=== PATIENT | male | born 1945 | race Caucasian/White ===

== ENCOUNTER → 2019-07-20 | Outpatient (REF) | payer MEDICARE, OTHER ==
[~2019-07-20] MED LIST: ALLO100T PO; ALOE PO; ASPI81TA85 PO; CALCTAB28 PO; CORE25TA PO; DAPS25TA2 PO; DIOV320T PO; FISHOIL PO; FLOM0.4C39 PO; GLUC2.5T2 PO; GLUC250C5 PO; HUMALOG; HYDR-3677 PO; LANTUS INSULIN SQ; LASI80TA PO; LATA0.002 OU; LIPI20TA PO; METO-1 PO; MICR8CAP PO; MUCI600T34 PO; MULTTAB4 PO; NORV2TAB PO; NOVO70VL SC; NYAM10003 TOP; ONGL5TAB PO; PRED10TA2 PO; PROP80TA PO; PROT1TAB2 PO; TORS10TA22 PO; VITA200T4 PO; VITAMIN D PO; [UNRECOGNIZED DRUG - CODE] PO; [UNRECOGNIZED DRUG - CODE] PO
[2019-07-20 19:08] LABS: CREATININE, URINE 96.2 MG/DL; MALB URINE SIEMENS 20.9 MG/L; MAU/CREAT RATIO 21.7 MCG/MG (0.0-30.0)
== END ==
LOC: M LAB REF 16:35
PROVIDERS: ATTEND Internal Medicine Endocrinology, Diabetes & Metabolism
DX: E11.22 Type 2 diabetes mellitus with diabetic chronic kidney disease (principal)

== ENCOUNTER → 2020-04-17 | Outpatient (CLI) | payer MEDICARE, OTHER ==
[2020-04-17 13:49] LABS: CHOLESTEROL RISK RATIO 3.871 (<5)
== END ==
LOC: M WUC 09:06
PROVIDERS: ATTEND Nurse Practitioner Family
DX: E78.2 Mixed hyperlipidemia (principal)

== ENCOUNTER → 2020-10-31 | Outpatient (REF) | payer MEDICARE, OTHER ==
[2020-11-01 23:07] LABS: PSA TOTAL 2.2 ng/mL (0.0-4.0)
== END ==
LOC: M LAB REF 12:56
PROVIDERS: ATTEND Nurse Practitioner Family
DX: N40.1 Benign prostatic hyperplasia with lower urinary tract symptoms (principal)

== ENCOUNTER → 2020-11-13 | Outpatient (CLI) | payer MEDICARE, OTHER ==
--- NOTE | 2020-11-14 09:23 | REP ---
INDICATION: CKD 4, RETENTION OF URINE COMPARISON: None TECHNIQUE: Real time B-mode ultrasound examination using curved array transducer. FINDINGS: Bladder is normal in appearance without wall thickening or mass lesion. Bilateral ureteral jets are identified. Prostate gland measures 5.4 x 5.0 x 4.5 cm. Prevoid bladder measures 13.7 x 9.2 x 7.3 cm (600 cc). Postvoid bladder measures 9.4 x 6.4 x 4.9 cm (193 cc). Postvoid residual: 32% IMPRESSION: 1. Normal appearance of the bladder but elevated postvoid residual volume requires further investigation. <Electronically signed by Colton Cid > 11/14/20 [id number]
--- NOTE | 2020-11-14 09:29 | REP ---
INDICATION: CKD 4, RETENTION OF URINE COMPARISON: 01/18/2016 TECHNIQUE: Real time best scale ultrasound examination using curved array transducer. FINDINGS: Kidneys are normal in reniform shape and demonstrate increased central sinus fat, cortical thinning, increased parenchymal echotexture and renovascular calcifications consistent with chronic medical renal disease. No hydronephrosis, nephrolithiasis or renal mass lesion. Right kidney measures 12.4 x 6.4 x 5.9 cm. Left kidney measures 13.6 x 5.9 x 5.9 cm and includes 1.3 x 1.0 x 1.1 cm lower pole cyst. Incidental gallstones noted. IMPRESSION: Chronic medical renal disease. Incidental gallstones noted. <Electronically signed by Colton Cid > 11/14/20 [id number]
== END ==
LOC: M RAD 15:52
PROVIDERS: ATTEND Nurse Practitioner Family
DX: N18.4 Chronic kidney disease, stage 4 (severe) (principal); R33.9 Retention of urine, unspecified

== ENCOUNTER → 2021-06-19 | Outpatient (CLI) | payer MEDICARE, OTHER ==
[2021-06-19 13:26] LABS: CHOLESTEROL RISK RATIO 3.358 (<5)
== END ==
LOC: M WUC 09:07
PROVIDERS: ATTEND Nurse Practitioner Family
DX: E78.2 Mixed hyperlipidemia (principal)

== ENCOUNTER → 2021-09-04 | Outpatient (CLI) | payer MEDICARE, OTHER ==
[~2021-09-04] MED LIST changes: +E-Z-GAS II EFFERVESCENT PACKET (SODIUM BICARB./CITRIC ACID/SIMETHICONE) As Ordered ONE; +E-Z-HD 98% w/w 340GM SUSP BTL As Ordered ONE; +E-Z-PAQUE 96% w/w SUSP 176GM BTL As Ordered ONE
[2021-09-04 10:56] LABS: HEMATOCRIT 46.3 % (42.0-52.0); HEMOGLOBIN 15.3 g/dl (13.5-17.5); MEAN CORPUSCULAR HEMOGLOBIN 31.9 pg (27.0-33.0); MEAN CORPUSCULAR VOLUME 96.5 fl (80.0-96.0); PLATELET COUNT, AUTOMATED 230 10^3/uL (150-450); WHITE BLOOD COUNT 7.2 10^3/uL (4.0-10.0)
[2021-09-04 11:37] LABS: ALBUMIN 3.5 GM/DL (3.2-5.2); BILIRUBIN,TOTAL 0.6 MG/DL (0.2-1.0); CALCIUM LEVEL 9.8 MG/DL (8.8-10.2); CREATININE FOR GFR 2.87 MG/DL (0.70-1.30); TOTAL PROTEIN 6.6 GM/DL (6.4-8.2)
[2021-09-04 11:38] LABS: PROSTATIC SPECIFIC AG MONITOR 3.23 NG/ML (< 4.00); THYROID STIMULATING HORMONE 2.98 uIU/ML (0.358-3.740)
[2021-09-04 13:18] LABS: HEMOGLOBIN A1c 7.4 %
== END ==
LOC: M RAD 08:48
PROVIDERS: ATTEND Family Medicine
DX: K31.7 Polyp of stomach and duodenum (principal); R19.01 Right upper quadrant abdominal swelling, mass and lump; K80.20 Calculus of gallbladder without cholecystitis without obstruction; R47.02 Dysphasia; R10.13 Epigastric pain

== ENCOUNTER → 2021-09-26 | Outpatient (REF) | payer MEDICARE, OTHER ==
[~2021-09-26] MED LIST changes: -E-Z-GAS II EFFERVESCENT PACKET (SODIUM BICARB./CITRIC ACID/SIMETHICONE) As Ordered ONE; -E-Z-HD 98% w/w 340GM SUSP BTL As Ordered ONE; -E-Z-PAQUE 96% w/w SUSP 176GM BTL As Ordered ONE
[2021-09-26 19:44] LABS: ALBUMIN 3.5 GM/DL (3.2-5.2); CALCIUM LEVEL 9.1 MG/DL (8.8-10.2); CREATININE FOR GFR 2.47 MG/DL (0.70-1.30); GLOMERULAR FILTRATION RATE 27.3 (>42); PHOSPHORUS LEVEL 3.8 MG/DL (2.5-4.9); URIC ACID 5.1 MG/DL (3.5-7.2)
== END ==
LOC: M LAB REF 16:58
PROVIDERS: ATTEND Nurse Practitioner Family
DX: N18.4 Chronic kidney disease, stage 4 (severe) (principal); M10.9 Gout, unspecified

== ENCOUNTER → 2021-11-28 | Outpatient (CLI) | payer MEDICARE, OTHER ==
[2021-11-28 09:56] LABS: HEMATOCRIT 44.8 % (42.0-52.0); HEMOGLOBIN 14.8 g/dl (13.5-17.5); MEAN CORPUSCULAR HEMOGLOBIN 32.9 pg (27.0-33.0); MEAN CORPUSCULAR VOLUME 99.6 fl (80.0-96.0); PLATELET COUNT, AUTOMATED 217 10^3/uL (150-450); WHITE BLOOD COUNT 8.8 10^3/uL (4.0-10.0)
[2021-11-28 10:10] LABS: INR 0.94
[2021-11-28 10:35] LABS: ALBUMIN 3.4 GM/DL (3.2-5.2); BILIRUBIN,TOTAL 0.5 MG/DL (0.2-1.0); CALCIUM LEVEL 9.2 MG/DL (8.8-10.2); CHOLESTEROL RISK RATIO 3.024 (<5); CREATININE FOR GFR 2.48 MG/DL (0.70-1.30); GLOMERULAR FILTRATION RATE 27.2 (>42); POTASSIUM SERUM 4.1 MEQ/L (3.5-5.1); THYROID STIMULATING HORMONE 2.7 uIU/ML (0.358-3.740); TOTAL PROTEIN 6.5 GM/DL (6.4-8.2)
== END ==
LOC: M RAD 08:40
PROVIDERS: ATTEND Family Medicine
DX: Z01.818 Encounter for other preprocedural examination (principal); I10 Essential (primary) hypertension
CPT/HCPCS: 36415; 71046; 80053; 80061; 84443; 85027; 85610; 93005; G0103

== ENCOUNTER → 2021-12-13 | Outpatient (CLI) | payer MEDICARE, OTHER ==
[~2021-12-13] MED LIST changes: +ALLO300T2 PO; +AMLO1TAB24 PO; +ATOR40TA75 PO; +CALC1CAP31 PO; +CARV25TA PO; +ECOT81TA5 PO; +EZET10TA21 PO; +FURO80TA2 PO; +GLIP10TA18 PO; +HYDR10TAB PO; +NOVOINJ3 SC; +PANT40TA29 PO; +SITA50TAB PO; +SPIR-10 PO; +TAMS1CAP17 PO; +TIMO0.5S29 OU; +TRES1INJ SC
== END ==
LOC: M LABSMTC 09:08
PROVIDERS: ATTEND Anesthesiology
DX: Z01.812 Encounter for preprocedural laboratory examination (principal); Z20.822 Contact with and (suspected) exposure to COVID-19

== ENCOUNTER 2021-12-18 06:01 | Day surgery (SDC) | payer MEDICARE, OTHER ==
[~2021-12-18] VITALS: Ht 177.8 cm; Wt 103.3 kg
[~2021-12-18 06:01] MED LIST changes: +ceFAZolin SOD 2 GM in IV 1 EA IV ONE
[2021-12-18] MEDS ORDERED: LR 1,000 ML IV SCH ×2 (06:25→09:00)
[2021-12-18] MEDS ORDERED: INSULIN LISPRO (NovoLOG) PER UNIT SC PRN ×2 (06:25→09:00)
[2021-12-18] MEDS ORDERED: latanoprost OU (06:43)
[2021-12-18] MEDS ORDERED: BUPIVACAINE/EPIN 0.25% 30 ML VIAL As Ordered ONE (07:21)
[2021-12-18] MEDS ORDERED: GLUCAGON INJ 1MG VIAL As Ordered ONE (07:21)
[2021-12-18] MEDS ORDERED: MIDAZOLAM INJ 2MG/2ML VIAL (J2250 PER 1MG) As Ordered ONE (07:56)
[2021-12-18] MEDS ORDERED: METOCLOPRAMIDE INJ 10MG/2ML VIAL (J2765 PER 1) As Ordered ONE (07:56)
[2021-12-18] MEDS ORDERED: ACETAMINOPHEN 1000MG 100ML IV BTL (OFIRMEV) (J0131 PER 10MG) As Ordered ONE (07:56)
[2021-12-18] MEDS ORDERED: propofoL 200 MG/20 ML VIAL As Ordered ONE (07:56)
[2021-12-18] MEDS ORDERED: LIDOCAINE 2% 100MG/5ML SDV (FOR ANES.) As Ordered ONE (07:56)
[2021-12-18] MEDS ORDERED: ROCURONIUM BROMIDE 50 MG/5 ML VIAL As Ordered ONE (07:56)
[2021-12-18] MEDS ORDERED: fentaNYL 250 MCG/5 ML INJECTION As Ordered ONE (07:56)
[2021-12-18] MEDS ORDERED: ONDANSETRON 4MG 2ML VIAL As Ordered ONE (07:56)
[2021-12-18] MEDS ORDERED: DESFLURANE 240 ML INHALANT As Ordered ONE (07:56)
[2021-12-18] MEDS ORDERED: dexameTHASONE 4 MG/ML 1ML VIAL (J1100 PER 1MG) As Ordered ONE (07:56)
[2021-12-18] MEDS ORDERED: SUGAMMADEX SODIUM 500 MG/5 ML VIAL (BRIDION) As Ordered ONE (07:56)
[2021-12-18] MEDS ORDERED: ePHEDrine SULFATE 25 MG/5 ML(5MG/ML) SYRINGE As Ordered ONE (08:05)
[2021-12-18] MEDS ORDERED: PHENYLephrine 500MCG 5ML (100MCG/ML) SYRINGE As Ordered ONE (08:05)
[2021-12-18] MEDS ORDERED: ONDANSETRON 4MG 2ML VIAL IV PRN (09:00)
[2021-12-18] MEDS ORDERED: oxyCODONE 5MG TAB PO PRN (09:00)
[2021-12-18] MEDS ORDERED: fentaNYL 100 MCG/2 ML INJECTION IV PRN (09:00)
[2021-12-18] MEDS ORDERED: HYDROMORPHONE HCL 0.5 MG/ 0.5 ML SYRINGE (J1170 PER 1) IV PRN (09:00)
[2021-12-18] MEDS ORDERED: NS 1,000 ML IV SCH (09:20)
[2021-12-18] MEDS ORDERED: traMADol 50 MG TAB PO PRN (09:25)
[2021-12-18 11:00] VITALS: BP 152/88
== END 2021-12-18 11:12 | disposition home or self-care (01) ==
LOC: M SDC 06:01
PROVIDERS: ATTEND Surgery
DX: K80.10 Calculus of gallbladder with chronic cholecystitis without obstruction (principal); I12.9 Hypertensive chronic kidney disease with stage 1 through stage 4 chronic kidney disease, or unspecified chronic kidney disease; N18.4 Chronic kidney disease, stage 4 (severe); E78.5 Hyperlipidemia, unspecified; K21.9 Gastro-esophageal reflux disease without esophagitis; G47.33 Obstructive sleep apnea (adult) (pediatric); E11.9 Type 2 diabetes mellitus without complications; Z79.84 Long term (current) use of oral hypoglycemic drugs; Z88.5 Allergy status to narcotic agent; Z79.899 Other long term (current) drug therapy
CPT/HCPCS: 47562; 88304; J0131; J0690; J1100; J2250; J2370; J2405; J2765; J3010

== ENCOUNTER 2022-04-05 11:52 | Emergency (ER) | payer MEDICARE, OTHER ==
[~2022-04-05] VITALS: Ht 177.8 cm; Wt 108.6 kg
[~2022-04-05 11:52] MED LIST changes: -ceFAZolin SOD 2 GM in IV 1 EA IV ONE; +latanoprost OU
[2022-04-05 12:03] VITALS: BP 148/52
[2022-04-05] MEDS ORDERED: HYDR-3713 PO (13:21)
== END 2022-04-05 13:36 | disposition home or self-care (01) ==
LOC: EDBD 11:52 → M ED 11:52
DX: S42.351A Displaced comminuted fracture of shaft of humerus, right arm, initial encounter for closed fracture (principal); S00.81XA Abrasion of other part of head, initial encounter; W00.0XXA Fall on same level due to ice and snow, initial encounter; I10 Essential (primary) hypertension; J44.9 Chronic obstructive pulmonary disease, unspecified; E11.9 Type 2 diabetes mellitus without complications; Z88.6 Allergy status to analgesic agent; Z79.899 Other long term (current) drug therapy; Z79.82 Long term (current) use of aspirin; Z79.4 Long term (current) use of insulin; Y92.009 Unspecified place in unspecified non-institutional (private) residence as the place of occurrence of the external cause; Y93.9 Activity, unspecified; Y99.9 Unspecified external cause status

== ENCOUNTER 2022-04-30 14:08 | Inpatient (IN) | payer MEDICARE, OTHER ==
[~2022-04-30] VITALS: Ht 177.8 cm; Wt 106.6 kg
[~2022-04-30 14:08] MED LIST changes: +HYDR-3713 PO
[2022-04-30] MEDS ORDERED: GLUCOSE 4GM CHEW TABLET PO PRN (14:30)
[2022-04-30] MEDS ORDERED: GLUCAGON INJ 1MG VIAL SC PRN (14:30)
[2022-04-30 15:15] VITALS: BP 166/90
[2022-04-30 15:31] LABS: HEMOGLOBIN 14.8 g/dl (13.5-17.5); MEAN CORPUSCULAR HEMOGLOBIN 32.2 pg (27.0-33.0); MEAN CORPUSCULAR HGB CONC 32.9 g/dl (32.0-36.5); MEAN CORPUSCULAR VOLUME 97.8 fl (80.0-96.0); PLATELET COUNT, AUTOMATED 282 10^3/uL (150-450); WHITE BLOOD COUNT 8.7 10^3/uL (4.0-10.0)
[2022-04-30 15:57] LABS: ALBUMIN 3.4 G/DL (3.2-5.2); BILIRUBIN,TOTAL 0.6 MG/DL (0.3-1.2); CALCIUM LEVEL 9.1 MG/DL (8.3-10.6); CREATININE FOR GFR 2.2 MG/DL (0.70-1.30); GLOMERULAR FILTRATION RATE 31.2 (>42); POTASSIUM SERUM 3.9 MMOL/L (3.5-5.1); TOTAL PROTEIN 6.6 G/DL (5.7-8.2)
[2022-04-30 16:07] LABS: PROTHROMBIN TIME 13.4 SECONDS (12.5-14.5)
[2022-04-30 16:08] LABS: PARTIAL THROMBOPLASTIN TIME 26.4 SECONDS (24.8-34.2)
[2022-04-30] MEDS ORDERED: traMADol 50 MG TAB PO PRN (16:55)
[2022-04-30] MEDS ORDERED: MORPHINE 2 MG/ML 1ML VIAL IV PRN (16:55)
[2022-04-30] MEDS ORDERED: **NOTE PATIENT COMMENT** MISC XX SCH (16:55)
[2022-04-30] MEDS ORDERED: INSULIN LISPRO (NovoLOG) PER UNIT SC SCH ×2 (17:30→21:00)
[2022-04-30] MEDS ORDERED: **hydrALAZINE** 10 MG TAB PO SCH (21:00)
[2022-04-30] MEDS ORDERED: SPIRONOLACTONE 25 MG TAB PO SCH (21:00)
[2022-04-30 21:05] VITALS: BP 150/85
[2022-04-30] MEDS ORDERED: KRIL1000 PO (21:17)
[2022-04-30] MEDS ORDERED: OXYC-517 PO (21:17)
[2022-04-30] MEDS ORDERED: ACET-897 PO (21:17)
[2022-04-30] MEDS ORDERED: XALA0.007 OU (21:17)
[2022-04-30] MEDS ORDERED: VITA400C53 PO (21:19)
[2022-04-30] MEDS ORDERED: THERTAB52 PO (21:19)
[2022-04-30] MEDS ORDERED: HOME MED LIST COMPLETE! XX SCH (21:20)
[2022-04-30] MEDS: TAMSULOSIN 0.4 MG CAP PO SCH (21:39)
[2022-04-30] MEDS: ATORVASTATIN 20 MG TAB PO SCH (21:40)
[2022-04-30] MEDS: PANTOPRAZOLE 40MG TAB (PROTONIX) PO SCH (21:40)
[2022-04-30] MEDS ORDERED: oxyCODONE 5MG TAB PO PRN (21:50)
[2022-04-30] MEDS: ACETAMINOPHEN 500 MG TAB PO PRN (21:57)
[2022-04-30] MEDS: LATANOPROST 0.005% OPHTH SOLN 2.5 ML OU SCH (22:02)
[2022-04-30] MEDS: CARVedilol 12.5 MG TAB PO SCH (22:35)
[2022-05-01] VITALS (9 sets, daily range): BP systolic 122–142; BP diastolic 77–93
[2022-05-01] MEDS: DEXTROSE 50% 50ML SYRINGE IV PRN ×2 (05:52→11:53)
[2022-05-01] MEDS: INSULIN LISPRO (NovoLOG) PER UNIT SC SCH ×3 (06:00→18:58)
[2022-05-01 06:18] LABS: HEMATOCRIT 40.5 % (42.0-52.0); HEMOGLOBIN 13.3 g/dl (13.5-17.5); MEAN CORPUSCULAR HGB CONC 32.8 g/dl (32.0-36.5); MEAN CORPUSCULAR VOLUME 97.6 fl (80.0-96.0); PLATELET COUNT, AUTOMATED 247 10^3/uL (150-450); RED BLOOD COUNT 4.15 10^6/uL (4.30-6.10); WHITE BLOOD COUNT 7.9 10^3/uL (4.0-10.0)
[2022-05-01 06:49] LABS: CALCIUM LEVEL 8.7 MG/DL (8.3-10.6); CREATININE FOR GFR 2.2 MG/DL (0.70-1.30); GLOMERULAR FILTRATION RATE 31.2 (>42)
[2022-05-01] MEDS ORDERED: FUROSEMIDE 80 MG TAB PO SCH (08:00)
[2022-05-01] MEDS: TIMOLOL MALEATE 0.5% OPHTH SOLN 5 ML OU SCH (08:59)
[2022-05-01] MEDS: CARVedilol 12.5 MG TAB PO SCH ×2 (09:00→21:08)
[2022-05-01] MEDS: PANTOPRAZOLE 40MG TAB (PROTONIX) PO SCH ×2 (09:00→21:09)
[2022-05-01] MEDS: allopurinoL 300 MG TAB PO SCH (09:00)
[2022-05-01] MEDS ORDERED: ROPIvacaine 0.5% 30ML VIAL PN ONE (10:10)
[2022-05-01] MEDS ORDERED: MIDAZOLAM INJ 2MG/2ML VIAL IV PRN (10:10)
[2022-05-01] MEDS ORDERED: fentaNYL 100 MCG/2 ML INJECTION IV PRN ×2 (10:10→15:50)
[2022-05-01] MEDS ORDERED: LIDOCAINE 1% SDV 5ML VIAL PN ONE (10:10)
[2022-05-01] MEDS ORDERED: ROCURONIUM BROMIDE 50MG/5ML VIAL As Ordered ONE ×2 (11:36→13:00)
[2022-05-01] MEDS ORDERED: fentaNYL 100 MCG/2 ML INJECTION As Ordered ONE (11:36)
[2022-05-01] MEDS ORDERED: LIDOCAINE 2% 100MG/5ML SDV (FOR ANES.) As Ordered ONE (11:36)
[2022-05-01] MEDS ORDERED: propofoL 200 MG/20 ML VIAL As Ordered ONE ×2 (11:36→15:05)
[2022-05-01] MEDS ORDERED: TRANEXAMIC ACID 100 MG/ML 10ML VIAL As Ordered ONE ×2 (11:39→12:23)
[2022-05-01] MEDS ORDERED: LIDOCAINE W/EPINEPHRINE 1% 20ML VIAL As Ordered ONE ×2 (11:39→12:14)
[2022-05-01] MEDS ORDERED: VANCOMYCIN 1000MG/20ML VIAL As Ordered ONE (11:39)
[2022-05-01] MEDS ORDERED: EZETIMIBE 10MG TABLET (ZETIA) PO SCH (12:00)
[2022-05-01] MEDS ORDERED: ceFAZolin 2 GM/D5W 50 ML IV BAG As Ordered ONE (12:14)
[2022-05-01] MEDS ORDERED: PHENYLephrine 500MCG 5ML (100MCG/ML) SYRINGE As Ordered ONE ×2 (12:16→12:21)
[2022-05-01] MEDS ORDERED: ePHEDrine SULFATE 25 MG/5 ML(5MG/ML) SYRINGE As Ordered ONE (12:21)
[2022-05-01] MEDS ORDERED: DESFLURANE 240 ML INHALANT As Ordered ONE (12:48)
[2022-05-01] MEDS ORDERED: PHENYLEPHRINE 10MG/ML 1ML VIAL As Ordered ONE (12:52)
[2022-05-01] MEDS ORDERED: ACETAMINOPHEN 1000MG 100ML IV BAG As Ordered ONE (13:44)
[2022-05-01] MEDS ORDERED: ONDANSETRON 4MG 2ML VIAL As Ordered ONE (13:48)
[2022-05-01] MEDS ORDERED: HYDROMORPHONE HCL 0.5 MG/ 0.5 ML SYRINGE IV PRN (15:30)
[2022-05-01] MEDS ORDERED: PERCOCET 5MG/325MG TAB PO PRN (15:30)
[2022-05-01] MEDS ORDERED: ONDANSETRON 4MG 2ML VIAL IV PRN (15:30)
[2022-05-01] MEDS ORDERED: LR 1,000 ML IV SCH ×2 (15:30→15:50)
[2022-05-01] MEDS ORDERED: METOCLOPRAMIDE INJ 10MG/2ML VIAL IV ONE (15:45)
[2022-05-01] MEDS ORDERED: METOCLOPRAMIDE INJ 10MG/2ML VIAL IV PRN (15:50)
[2022-05-01] MEDS ORDERED: GLUCAGON INJ 1MG VIAL SC PRN (16:45)
[2022-05-01] MEDS ORDERED: GLUCOSE 4GM CHEW TABLET PO PRN (16:45)
[2022-05-01] MEDS ORDERED: DEXTROSE 50% 50ML SYRINGE IV PRN (16:45)
[2022-05-01] MEDS ORDERED: INSULIN LISPRO (NovoLOG) PER UNIT SC SCH (21:00)
[2022-05-01] MEDS: LATANOPROST 0.005% OPHTH SOLN 2.5 ML OU SCH (21:09)
[2022-05-01] MEDS: ceFAZolin SOD 1 GM in D5W MINI-BAG PLUS 50 ML IV SCH (21:09)
[2022-05-01] MEDS: ATORVASTATIN 20 MG TAB PO SCH (21:09)
[2022-05-01] MEDS: TAMSULOSIN 0.4 MG CAP PO SCH (21:09)
[2022-05-02 02:00] VITALS: BP 135/90
[2022-05-02] MEDS: ceFAZolin SOD 1 GM in D5W MINI-BAG PLUS 50 ML IV SCH ×2 (04:41→12:33)
[2022-05-02 06:00] VITALS: BP 134/88
[2022-05-02] MEDS: ACETAMINOPHEN 500 MG TAB PO PRN (06:38)
[2022-05-02 06:53] LABS: HEMATOCRIT 38.5 % (42.0-52.0); HEMOGLOBIN 12.6 g/dl (13.5-17.5); MEAN CORPUSCULAR HGB CONC 32.7 g/dl (32.0-36.5); MEAN CORPUSCULAR VOLUME 97.7 fl (80.0-96.0); PLATELET COUNT, AUTOMATED 239 10^3/uL (150-450); RED BLOOD COUNT 3.94 10^6/uL (4.30-6.10); WHITE BLOOD COUNT 14.3 10^3/uL (4.0-10.0)
[2022-05-02] MEDS ORDERED: ACETAMINOPHEN 500 MG TAB PO PRN (07:15)
[2022-05-02 07:19] LABS: CALCIUM LEVEL 8.5 MG/DL (8.3-10.6); CREATININE FOR GFR 2.38 MG/DL (0.70-1.30); GLOMERULAR FILTRATION RATE 28.5 (>42); POTASSIUM SERUM 4.4 MMOL/L (3.5-5.1)
[2022-05-02] MEDS: INSULIN LISPRO (NovoLOG) PER UNIT SC SCH ×2 (07:53→12:49)
[2022-05-02 08:00] VITALS: BP 131/86
[2022-05-02 08:36] VITALS: BP 130/80
[2022-05-02] MEDS: CARVedilol 12.5 MG TAB PO SCH (08:36)
[2022-05-02] MEDS: PANTOPRAZOLE 40MG TAB (PROTONIX) PO SCH (08:38)
[2022-05-02] MEDS: allopurinoL 300 MG TAB PO SCH (08:38)
[2022-05-02] MEDS: TIMOLOL MALEATE 0.5% OPHTH SOLN 5 ML OU SCH (08:39)
[2022-05-02] MEDS ORDERED: amLODIPine 5 MG TAB PO SCH (09:00)
[2022-05-02] MEDS ORDERED: TRAM50TA2 PO (10:19)
[2022-05-02] MEDS ORDERED: ACET-683 PO (10:19)
[2022-05-02] MEDS ORDERED: ASPI-1 PO (10:23)
[2022-05-02] MEDS ORDERED: EZETIMIBE 10MG TABLET (ZETIA) PO SCH (12:00)
[2022-05-03] MEDS ORDERED: CALCITRIOL 0.25 MCG CAP (S0169) PO SCH (12:00)
== END 2022-05-02 16:10 | disposition home health service (06) | DRG 483 ==
LOC: M MS5PR 14:56
PROVIDERS: ADMIT Family Medicine; ATTEND Student in an Organized Health Care Education/Training Program
PROC: 0RRJ00Z Replacement of Right Shoulder Joint with Reverse Ball and Socket Synthetic Substitute, Open Approach (ICD-10-PCS; principal; 2022-05-01 10:00)
DX: S42.291A Other displaced fracture of upper end of right humerus, initial encounter for closed fracture (principal); E11.51 Type 2 diabetes mellitus with diabetic peripheral angiopathy without gangrene; E11.22 Type 2 diabetes mellitus with diabetic chronic kidney disease; N18.32 Chronic kidney disease, stage 3b; E78.5 Hyperlipidemia, unspecified; I13.10 Hypertensive heart and chronic kidney disease without heart failure, with stage 1 through stage 4 chronic kidney disease, or unspecified chronic kidney disease; N40.0 Benign prostatic hyperplasia without lower urinary tract symptoms; M10.9 Gout, unspecified; D64.9 Anemia, unspecified; G47.33 Obstructive sleep apnea (adult) (pediatric); E55.9 Vitamin D deficiency, unspecified; Z79.899 Other long term (current) drug therapy; Z79.82 Long term (current) use of aspirin; Z88.5 Allergy status to narcotic agent; Z79.4 Long term (current) use of insulin; W18.30XA Fall on same level, unspecified, initial encounter; Y92.009 Unspecified place in unspecified non-institutional (private) residence as the place of occurrence of the external cause

== ENCOUNTER → 2022-05-10 | Outpatient (CLI) | payer MEDICARE, OTHER ==
[~2022-05-10] MED LIST changes: +ACET-683 PO; +ACET-897 PO; +ASPI-1 PO; +KRIL1000 PO; +OXYC-517 PO; +THERTAB52 PO; +TRAM50TA2 PO; +VITA400C53 PO; +XALA0.007 OU
== END ==
LOC: M SOG 08:14
PROVIDERS: ATTEND Physician Assistant
DX: S42.201D Unspecified fracture of upper end of right humerus, subsequent encounter for fracture with routine healing (principal); Z96.611 Presence of right artificial shoulder joint

== ENCOUNTER → 2022-06-21 | Outpatient (CLI) | payer MEDICARE, OTHER ==
[~2022-06-21] MED LIST changes: +TIMO0.5S20 OU; -TIMO0.5S29 OU
== END ==
LOC: M SOG 08:14
PROVIDERS: ATTEND Physician Assistant
DX: Z96.611 Presence of right artificial shoulder joint (principal)

== ENCOUNTER → 2022-06-24 | Outpatient (CLI) | payer MEDICARE, OTHER ==
[2022-06-24 10:40] LABS: CHOLESTEROL RISK RATIO 3.1 (<5); HDL CHOLESTEROL 40.2 MG/DL (>40); LDL CHOLESTEROL 57.2 MG/DL (<100); NON-HDL-C 84.8 MG/DL
== END ==
LOC: M WUC 08:28
PROVIDERS: ATTEND Nurse Practitioner Family
DX: E78.2 Mixed hyperlipidemia (principal)

== ENCOUNTER 2022-06-29 13:32 | Inpatient (IN) | payer MEDICARE, OTHER ==
[~2022-06-29] VITALS: Ht 177.8 cm; Wt 101.8 kg
[2022-06-29 14:35] LABS: BASO # 0.1 10^3/uL (0.0-0.2); BASO % 0.4 % (0.0-1.0); EOS # 0.1 10^3/uL (0.0-0.5); EOS % 0.8 % (0.0-3.0); HEMATOCRIT 41.3 % (42.0-52.0); HEMOGLOBIN 13.6 g/dl (13.5-17.5); LYMPH # 1.2 10^3/uL (1.5-5.0); LYMPH % 9.6 % (24.0-44.0); MEAN CORPUSCULAR HEMOGLOBIN 30.7 pg (27.0-33.0); MEAN CORPUSCULAR HGB CONC 32.9 g/dl (32.0-36.5); MEAN CORPUSCULAR VOLUME 93.2 fl (80.0-96.0); MONO # 1.2 10^3/uL (0.0-0.8); MONO % 9.2 % (2.0-8.0); NEUTROPHILS # 10.1 10^3/uL (1.5-8.5); NEUTROPHILS % 79.3 % (36.0-66.0); PLATELET COUNT, AUTOMATED 245 10^3/uL (150-450); RED BLOOD COUNT 4.43 10^6/uL (4.30-6.10); WHITE BLOOD COUNT 12.8 10^3/uL (4.0-10.0)
[2022-06-29 14:57] LABS: CALCIUM LEVEL 9.7 MG/DL (8.3-10.6); CK-MB VALUE MASS 1.6 NG/ML (<3.6); CREATININE FOR GFR 1.9 MG/DL (0.70-1.30); GLOMERULAR FILTRATION RATE 36.9 (>42); MAGNESIUM LEVEL 2.1 MG/DL (1.8-2.4); POTASSIUM SERUM 3.9 MMOL/L (3.5-5.1)
[2022-06-29 15:00] LABS: THYROID STIMULATING HORMONE 1.722 uIU/ML (0.55-4.78)
[2022-06-29 15:01] LABS: MB/CK RELATIVE INDEX 1.03 (< OR =4); RSV AMPLIFICATION NEGATIVE (NEGATIVE)
[2022-06-29] MEDS ORDERED: METOPROLOL TART 25 MG TABLET PO ONE (15:05)
[2022-06-29] MEDS ORDERED: ECOT81TA5 PO (15:08)
[2022-06-29] MEDS: METOPROLOL 5 MG/5 ML VIAL IV SCH ×3 (15:14→15:29)
[2022-06-29] MEDS ORDERED: APIXABAN 5 MG TAB (ELIQUIS) PO ONE (15:45)
[2022-06-29] MEDS ORDERED: DIGOXIN INJ 0.5 MG/2 ML AMP IV ONE (15:45)
[2022-06-29 16:40] LABS: INR 0.96
[2022-06-29] MEDS ORDERED: HOME MED LIST COMPLETE! XX SCH (18:35)
[2022-06-29 19:31] LABS: FREE T4 1.03 NG/DL (0.89-1.76)
[2022-06-29 20:08] VITALS: BP 160/81
[2022-06-29] MEDS: SPIRONOLACTONE 25 MG TAB PO SCH (22:14)
[2022-06-29] MEDS: TAMSULOSIN 0.4 MG CAP PO SCH (22:14)
[2022-06-29] MEDS: ATORVASTATIN 20 MG TAB PO SCH (22:14)
[2022-06-29] MEDS: **hydrALAZINE** 10 MG TAB PO SCH (22:14)
[2022-06-29] MEDS: CARVedilol 12.5 MG TAB PO SCH (22:15)
[2022-06-29] MEDS: PANTOPRAZOLE 40MG TAB (PROTONIX) PO SCH (22:15)
[2022-06-29] MEDS: LATANOPROST 0.005% OPHTH SOLN 2.5 ML OU SCH (22:15)
[2022-06-30] VITALS (11 sets, daily range): BP systolic 115–142; BP diastolic 63–84
[2022-06-30] MEDS: DIGOXIN INJ 0.5 MG/2 ML AMP IV SCH ×2 (03:07→08:18)
[2022-06-30] MEDS: ACETAMINOPHEN TAB 650MG DOSE (2X325MG) PO PRN ×2 (05:58→18:32)
[2022-06-30 07:03] LABS: HEMATOCRIT 38.3 % (42.0-52.0); HEMOGLOBIN 12.7 g/dl (13.5-17.5); MEAN CORPUSCULAR HEMOGLOBIN 31.5 pg (27.0-33.0); MEAN CORPUSCULAR HGB CONC 33.2 g/dl (32.0-36.5); PLATELET COUNT, AUTOMATED 238 10^3/uL (150-450); RED BLOOD COUNT 4.03 10^6/uL (4.30-6.10)
[2022-06-30] MEDS ORDERED: GLUCAGON INJ 1MG VIAL SC PRN (07:30)
[2022-06-30] MEDS ORDERED: DEXTROSE 50% 50ML SYRINGE IV PRN (07:30)
[2022-06-30] MEDS ORDERED: GLUCOSE 4GM CHEW TABLET PO PRN (07:30)
[2022-06-30 07:33] LABS: CALCIUM LEVEL 9.3 MG/DL (8.3-10.6); CREATININE FOR GFR 2.2 MG/DL (0.70-1.30); GLOMERULAR FILTRATION RATE 31.1 (>42); POTASSIUM SERUM 4.5 MMOL/L (3.5-5.1)
[2022-06-30] MEDS: LEVEMIR (INSULIN DETEMIR) 1 UNITS/0.01ML SC SCH (08:16)
[2022-06-30] MEDS: TIMOLOL MALEATE 0.5% OPHTH SOLN 5 ML OU SCH (08:17)
[2022-06-30] MEDS: INSULIN LISPRO (NovoLOG) PER UNIT SC SCH ×4 (08:17→19:52)
[2022-06-30] MEDS: FUROSEMIDE 80 MG TAB PO SCH ×2 (08:18→12:39)
[2022-06-30] MEDS: ASPIRIN 81MG ENTERIC TABLET PO SCH (08:18)
[2022-06-30] MEDS: CARVedilol 12.5 MG TAB PO SCH ×2 (08:18→20:15)
[2022-06-30] MEDS: SPIRONOLACTONE 25 MG TAB PO SCH ×2 (08:19→20:15)
[2022-06-30] MEDS: allopurinoL 300 MG TAB PO SCH (08:19)
[2022-06-30] MEDS: PANTOPRAZOLE 40MG TAB (PROTONIX) PO SCH ×2 (08:19→20:15)
[2022-06-30] MEDS: APIXABAN 5 MG TAB (ELIQUIS) PO SCH ×2 (08:19→20:15)
[2022-06-30] MEDS: **hydrALAZINE** 10 MG TAB PO SCH ×2 (08:19→20:14)
[2022-06-30] MEDS: amLODIPine 5 MG TAB PO SCH (08:19)
[2022-06-30] MEDS: EZETIMIBE 10MG TABLET (ZETIA) PO SCH (12:38)
[2022-06-30] MEDS: TAMSULOSIN 0.4 MG CAP PO SCH (20:15)
[2022-06-30] MEDS: LATANOPROST 0.005% OPHTH SOLN 2.5 ML OU SCH (20:16)
[2022-06-30] MEDS: ATORVASTATIN 20 MG TAB PO SCH (20:16)
[2022-07-01 06:00] VITALS: BP 123/83
[2022-07-01 06:41] LABS: MAGNESIUM LEVEL 1.9 MG/DL (1.8-2.4)
[2022-07-01] MEDS: INSULIN LISPRO (NovoLOG) PER UNIT SC SCH ×4 (07:30→21:00)
[2022-07-01 08:02] LABS: CALCIUM LEVEL 8.5 MG/DL (8.3-10.6); CREATININE FOR GFR 2.44 MG/DL (0.70-1.30); GLOMERULAR FILTRATION RATE 27.6 (>42); POTASSIUM SERUM 3.9 MMOL/L (3.5-5.1)
[2022-07-01] MEDS: LEVEMIR (INSULIN DETEMIR) 1 UNITS/0.01ML SC SCH ×2 (09:00→12:28)
[2022-07-01] MEDS: PANTOPRAZOLE 40MG TAB (PROTONIX) PO SCH ×2 (10:17→20:59)
[2022-07-01] MEDS: APIXABAN 5 MG TAB (ELIQUIS) PO SCH ×2 (10:17→20:59)
[2022-07-01] MEDS: allopurinoL 300 MG TAB PO SCH (10:18)
[2022-07-01] MEDS: ASPIRIN 81MG ENTERIC TABLET PO SCH (10:18)
[2022-07-01] MEDS: EZETIMIBE 10MG TABLET (ZETIA) PO SCH (10:18)
[2022-07-01] MEDS: **hydrALAZINE** 10 MG TAB PO SCH ×2 (10:19→21:02)
[2022-07-01] MEDS: SPIRONOLACTONE 25 MG TAB PO SCH ×2 (10:19→20:59)
[2022-07-01] MEDS: TIMOLOL MALEATE 0.5% OPHTH SOLN 5 ML OU SCH (10:19)
[2022-07-01] MEDS: amLODIPine 5 MG TAB PO SCH (10:20)
[2022-07-01] MEDS: CARVedilol 12.5 MG TAB PO SCH ×2 (10:20→21:02)
[2022-07-01] MEDS: FUROSEMIDE 80 MG TAB PO SCH ×2 (10:20→13:50)
[2022-07-01] MEDS ORDERED: LR 1,500 ML IV ONE (10:45)
[2022-07-01] MEDS ORDERED: CALCITRIOL 0.25 MCG CAP (S0169) PO SCH (12:00)
[2022-07-01 12:13] LABS: HEMATOCRIT 40.2 % (42.0-52.0); HEMOGLOBIN 13.1 g/dl (13.5-17.5); MEAN CORPUSCULAR HEMOGLOBIN 31.3 pg (27.0-33.0); MEAN CORPUSCULAR HGB CONC 32.6 g/dl (32.0-36.5); MEAN CORPUSCULAR VOLUME 95.9 fl (80.0-96.0); PLATELET COUNT, AUTOMATED 241 10^3/uL (150-450); RED BLOOD COUNT 4.19 10^6/uL (4.30-6.10); WHITE BLOOD COUNT 8.4 10^3/uL (4.0-10.0)
[2022-07-01] MEDS ORDERED: APIXABAN 5 MG TAB (ELIQUIS) PO ONE (12:50)
[2022-07-01 14:00] VITALS: BP 137/74
[2022-07-01 20:00] VITALS: BP 135/74
[2022-07-01] MEDS: LATANOPROST 0.005% OPHTH SOLN 2.5 ML OU SCH (20:59)
[2022-07-01] MEDS: TAMSULOSIN 0.4 MG CAP PO SCH (20:59)
[2022-07-01] MEDS: ATORVASTATIN 20 MG TAB PO SCH (21:00)
[2022-07-02 06:00] VITALS: BP 131/78
[2022-07-02 07:00] LABS: MAGNESIUM LEVEL 1.8 MG/DL (1.8-2.4)
[2022-07-02 07:24] LABS: CALCIUM LEVEL 7.9 MG/DL (8.3-10.6); CREATININE FOR GFR 2.11 MG/DL (0.70-1.30); GLOMERULAR FILTRATION RATE 32.7 (>42); POTASSIUM SERUM 3.8 MMOL/L (3.5-5.1)
[2022-07-02] MEDS: APIXABAN 5 MG TAB (ELIQUIS) PO SCH (08:29)
[2022-07-02] MEDS: INSULIN LISPRO (NovoLOG) PER UNIT SC SCH ×2 (08:29→12:19)
[2022-07-02] MEDS: LEVEMIR (INSULIN DETEMIR) 1 UNITS/0.01ML SC SCH (08:29)
[2022-07-02] MEDS: allopurinoL 300 MG TAB PO SCH (08:29)
[2022-07-02] MEDS: ASPIRIN 81MG ENTERIC TABLET PO SCH (08:29)
[2022-07-02 08:30] VITALS: BP 112/73
[2022-07-02] MEDS: amLODIPine 5 MG TAB PO SCH (08:30)
[2022-07-02] MEDS: SPIRONOLACTONE 25 MG TAB PO SCH (08:30)
[2022-07-02] MEDS: PANTOPRAZOLE 40MG TAB (PROTONIX) PO SCH (08:30)
[2022-07-02] MEDS: CARVedilol 12.5 MG TAB PO SCH (08:30)
[2022-07-02] MEDS: **hydrALAZINE** 10 MG TAB PO SCH (08:31)
[2022-07-02] MEDS: TIMOLOL MALEATE 0.5% OPHTH SOLN 5 ML OU SCH (08:33)
[2022-07-02] MEDS: FUROSEMIDE 80 MG TAB PO SCH ×2 (08:36→12:19)
[2022-07-02 12:18] VITALS: BP 116/72
[2022-07-02] MEDS: EZETIMIBE 10MG TABLET (ZETIA) PO SCH (12:19)
[2022-07-02] MEDS ORDERED: ELIQ5TAB PO (12:52)
[2022-07-02 14:00] VITALS: BP 117/70
[2022-07-08] MEDS ORDERED: APIXABAN 5 MG TAB (ELIQUIS) PO SCH (09:00)
== END 2022-07-02 16:24 | disposition home or self-care (01) | DRG 310 ==
LOC: EDBD 13:32 → M ED 14:52 → M ED INP 18:16 → M PCU 20:02 → M MSPAV 06-30 21:11
PROVIDERS: ADMIT Student in an Organized Health Care Education/Training Program; ATTEND Internal Medicine Nephrology
DX: I48.0 Paroxysmal atrial fibrillation (principal); E11.51 Type 2 diabetes mellitus with diabetic peripheral angiopathy without gangrene; I12.9 Hypertensive chronic kidney disease with stage 1 through stage 4 chronic kidney disease, or unspecified chronic kidney disease; N18.32 Chronic kidney disease, stage 3b; R55 Syncope and collapse; E11.22 Type 2 diabetes mellitus with diabetic chronic kidney disease; E78.5 Hyperlipidemia, unspecified; M10.9 Gout, unspecified; G47.33 Obstructive sleep apnea (adult) (pediatric); N40.0 Benign prostatic hyperplasia without lower urinary tract symptoms; Z96.611 Presence of right artificial shoulder joint; Z95.2 Presence of prosthetic heart valve; E55.9 Vitamin D deficiency, unspecified; H40.9 Unspecified glaucoma; Z66 Do not resuscitate; Z79.82 Long term (current) use of aspirin; Z79.899 Other long term (current) drug therapy

== ENCOUNTER 2022-07-22 10:27 | Inpatient (IN) | payer MEDICARE, OTHER ==
[~2022-07-22] VITALS: Ht 177.8 cm; Wt 104.5 kg
[~2022-07-22 10:27] MED LIST changes: +ELIQ5TAB PO
[2022-07-22 11:59] LABS: BASO % 0.3 % (0.0-1.0); EOS # 0.2 10^3/uL (0.0-0.5); EOS % 2.2 % (0.0-3.0); HEMATOCRIT 38.8 % (42.0-52.0); HEMOGLOBIN 12.7 g/dl (13.5-17.5); LYMPH # 0.9 10^3/uL (1.5-5.0); LYMPH % 13.7 % (24.0-44.0); MEAN CORPUSCULAR HEMOGLOBIN 30.9 pg (27.0-33.0); MEAN CORPUSCULAR HGB CONC 32.7 g/dl (32.0-36.5); MEAN CORPUSCULAR VOLUME 94.4 fl (80.0-96.0); MONO # 1.1 10^3/uL (0.0-0.8); MONO % 15.8 % (2.0-8.0); NEUTROPHILS # 4.5 10^3/uL (1.5-8.5); NEUTROPHILS % 67.4 % (36.0-66.0); PLATELET COUNT, AUTOMATED 227 10^3/uL (150-450); RED BLOOD COUNT 4.11 10^6/uL (4.30-6.10); WHITE BLOOD COUNT 6.7 10^3/uL (4.0-10.0)
[2022-07-22] MEDS ORDERED: ELIQ5TAB PO (14:14)
[2022-07-22] MEDS ORDERED: ACE65ERTAB PO (14:14)
[2022-07-22] MEDS ORDERED: HOME MED LIST COMPLETE! XX SCH (14:15)
[2022-07-22] MEDS ORDERED: DEXTROSE 50% 50ML SYRINGE IV PRN (15:05)
[2022-07-22] MEDS ORDERED: GLUCOSE 4GM CHEW TABLET PO PRN (15:05)
[2022-07-22] MEDS ORDERED: GLUCAGON INJ 1MG VIAL SC PRN (15:05)
[2022-07-22] MEDS: ASPIRIN 81MG ENTERIC TABLET PO SCH (15:59)
[2022-07-22] MEDS: FUROSEMIDE 40 MG TAB PO SCH (16:00)
[2022-07-22] MEDS: SPIRONOLACTONE 25 MG TAB PO SCH (16:00)
[2022-07-22] MEDS: EZETIMIBE 10MG TABLET (ZETIA) PO SCH (16:00)
[2022-07-22] MEDS: allopurinoL 300 MG TAB PO SCH (16:01)
[2022-07-22] MEDS: amLODIPine 5 MG TAB PO SCH (16:01)
[2022-07-22] MEDS: INSULIN LISPRO (NovoLOG) PER UNIT SC SCH (17:30)
[2022-07-22 18:00] VITALS: BP 130/94
[2022-07-22 20:00] VITALS: BP 134/74
[2022-07-22] MEDS ORDERED: LATANOPROST 0.005% OPHTH SOLN 2.5 ML OU SCH (21:00)
[2022-07-22] MEDS ORDERED: ATORVASTATIN 20 MG TAB PO SCH (21:00)
[2022-07-22] MEDS ORDERED: TAMSULOSIN 0.4 MG CAP PO SCH (21:00)
[2022-07-22] MEDS ORDERED: INSULIN LISPRO (NovoLOG) PER UNIT SC SCH (21:00)
[2022-07-22] MEDS: APIXABAN 5 MG TAB (ELIQUIS) PO SCH (21:44)
[2022-07-22] MEDS: **hydrALAZINE** 10 MG TAB PO SCH (21:44)
[2022-07-22] MEDS: PANTOPRAZOLE 40MG TAB (PROTONIX) PO SCH (21:44)
[2022-07-22 21:45] VITALS: BP 134/74
[2022-07-22] MEDS: CARVedilol 12.5 MG TAB PO SCH (21:45)
[2022-07-22 22:11] LABS: CK-MB VALUE MASS 1.2 NG/ML (<3.6)
[2022-07-22 22:12] LABS: MB/CK RELATIVE INDEX 1.3 (< OR =4)
[2022-07-23] VITALS: BP 133/77
[2022-07-23 04:00] VITALS: BP 140/66
[2022-07-23 06:29] LABS: HEMATOCRIT 38.4 % (42.0-52.0); HEMOGLOBIN 12.7 g/dl (13.5-17.5); MEAN CORPUSCULAR HEMOGLOBIN 31.1 pg (27.0-33.0); MEAN CORPUSCULAR HGB CONC 33.1 g/dl (32.0-36.5); MEAN CORPUSCULAR VOLUME 94.1 fl (80.0-96.0); PLATELET COUNT, AUTOMATED 228 10^3/uL (150-450); RED BLOOD COUNT 4.08 10^6/uL (4.30-6.10); WHITE BLOOD COUNT 6.6 10^3/uL (4.0-10.0)
[2022-07-23 06:54] LABS: CK-MB VALUE MASS < 1.0 NG/ML (<3.6)
[2022-07-23 06:56] LABS: CPK CREATINE PHOSPHOKINASE 68 U/L (46-171); MB/CK RELATIVE INDEX 1.47 (< OR =4)
[2022-07-23 06:57] LABS: CALCIUM LEVEL 8.4 MG/DL (8.3-10.6); CREATININE FOR GFR 1.93 MG/DL (0.70-1.30); GLOMERULAR FILTRATION RATE 36.2 (>42); MAGNESIUM LEVEL 2.2 MG/DL (1.8-2.4); POTASSIUM SERUM 4.2 MMOL/L (3.5-5.1)
[2022-07-23 07:34] VITALS: BP 126/71
[2022-07-23] MEDS ORDERED: CARBAMIDE PEROXIDE 6.5% OTIC SOLN 15ML AU SCH (09:00)
[2022-07-23] MEDS ORDERED: TIMOLOL MALEATE 0.5% OPHTH SOLN 5 ML OU SCH (09:00)
[2022-07-23] MEDS: INSULIN LISPRO (NovoLOG) PER UNIT SC SCH ×3 (09:10→18:29)
[2022-07-23 09:15] VITALS: BP_SYST 109; BP_SYST 127; BP_SYST 128; BP_DIAS 72; BP_DIAS 76
[2022-07-23 09:30] VITALS: BP 127/76
[2022-07-23] MEDS: PANTOPRAZOLE 40MG TAB (PROTONIX) PO SCH (09:32)
[2022-07-23] MEDS: SPIRONOLACTONE 25 MG TAB PO SCH (09:32)
[2022-07-23] MEDS: amLODIPine 5 MG TAB PO SCH (09:33)
[2022-07-23] MEDS: **hydrALAZINE** 10 MG TAB PO SCH (09:33)
[2022-07-23] MEDS: ASPIRIN 81MG ENTERIC TABLET PO SCH (09:33)
[2022-07-23] MEDS: CARVedilol 12.5 MG TAB PO SCH (09:33)
[2022-07-23] MEDS: EZETIMIBE 10MG TABLET (ZETIA) PO SCH (09:33)
[2022-07-23] MEDS: allopurinoL 300 MG TAB PO SCH (09:34)
[2022-07-23] MEDS: APIXABAN 5 MG TAB (ELIQUIS) PO SCH (09:34)
[2022-07-23] MEDS: FUROSEMIDE 40 MG TAB PO SCH (09:34)
[2022-07-23] MEDS ORDERED: CARBOT AU (09:35)
[2022-07-23 14:48] LABS: CK-MB VALUE MASS < 1.0 NG/ML (<3.6)
[2022-07-23 14:53] LABS: CPK CREATINE PHOSPHOKINASE 83 U/L (46-171)
== END 2022-07-23 19:20 | disposition home or self-care (01) | DRG 312 ==
LOC: M ED 10:27 → M ED INP 15:03 → M PCU 17:50
PROVIDERS: ADMIT Family Medicine; ATTEND General Practice
DX: I95.2 Hypotension due to drugs (principal); R45.851 Suicidal ideations; R55 Syncope and collapse; I48.91 Unspecified atrial fibrillation; I12.9 Hypertensive chronic kidney disease with stage 1 through stage 4 chronic kidney disease, or unspecified chronic kidney disease; R53.1 Weakness; F32.A Depression, unspecified; N40.0 Benign prostatic hyperplasia without lower urinary tract symptoms; E11.22 Type 2 diabetes mellitus with diabetic chronic kidney disease; G47.33 Obstructive sleep apnea (adult) (pediatric); N18.32 Chronic kidney disease, stage 3b; E11.51 Type 2 diabetes mellitus with diabetic peripheral angiopathy without gangrene; E78.5 Hyperlipidemia, unspecified; F43.21 Adjustment disorder with depressed mood; M10.9 Gout, unspecified; G89.29 Other chronic pain; Z79.82 Long term (current) use of aspirin; Z79.899 Other long term (current) drug therapy; Z88.5 Allergy status to narcotic agent; Z79.4 Long term (current) use of insulin

== ENCOUNTER → 2022-08-23 | Outpatient (REF) | payer MEDICARE, OTHER ==
[~2022-08-23] MED LIST changes: +ACE65ERTAB PO; +CARBOT AU
[2022-08-23 20:45] LABS: FREE T4 1.15 NG/DL (0.89-1.76)
[2022-08-23 20:46] LABS: THYROID STIMULATING HORMONE 2.757 uIU/ML (0.55-4.78)
== END ==
LOC: M LAB REF 17:24
PROVIDERS: ATTEND Nurse Practitioner Family
DX: R53.83 Other fatigue (principal)

== ENCOUNTER → 2022-09-02 | Outpatient (CLI) | payer MEDICARE, OTHER | LOC: M SOG 09:33 | PROVIDERS: ATTEND Physician Assistant | DX: Z96.611 Presence of right artificial shoulder joint (principal) ==

== ENCOUNTER → 2022-10-24 | Outpatient (CLI) | payer MEDICARE, OTHER | LOC: M WUC 14:42 | PROVIDERS: ATTEND Nurse Practitioner Family | DX: R05.1 Acute cough (principal) ==

== ENCOUNTER → 2022-10-24 | Outpatient (CLI) | payer MEDICARE, OTHER | LOC: M WUC 14:45 | PROVIDERS: ATTEND Nurse Practitioner Family | DX: R05.1 Acute cough (principal) ==

== ENCOUNTER → 2022-11-22 | Outpatient (CLI) | payer MEDICARE, OTHER ==
[2022-11-22 15:25] LABS: BASO # 0.1 10^3/uL (0.0-0.2); BASO % 0.5 % (0.0-1.0); EOS # 0.3 10^3/uL (0.0-0.5); HEMATOCRIT 32.8 % (42.0-52.0); HEMOGLOBIN 9.6 g/dl (13.5-17.5); LYMPH # 1.9 10^3/uL (1.5-5.0); LYMPH % 20.4 % (24.0-44.0); MEAN CORPUSCULAR HEMOGLOBIN 24.4 pg (27.0-33.0); MEAN CORPUSCULAR HGB CONC 29.3 g/dl (32.0-36.5); MEAN CORPUSCULAR VOLUME 83.5 fl (80.0-96.0); MONO # 1.2 10^3/uL (0.0-0.8); MONO % 12.6 % (2.0-8.0); NEUTROPHILS # 5.9 10^3/uL (1.5-8.5); NEUTROPHILS % 63.2 % (36.0-66.0); PLATELET COUNT, AUTOMATED 315 10^3/uL (150-450); RED BLOOD COUNT 3.93 10^6/uL (4.30-6.10); WHITE BLOOD COUNT 9.4 10^3/uL (4.0-10.0)
[2022-11-22 15:53] LABS: CALCIUM LEVEL 8.8 MG/DL (8.3-10.6); CREATININE FOR GFR 2.06 MG/DL (0.70-1.30); GLOMERULAR FILTRATION RATE 33.6 (>42); POTASSIUM SERUM 3.9 MMOL/L (3.5-5.1)
== END ==
LOC: M PLALAB 12:44
PROVIDERS: ATTEND Nurse Practitioner Family
DX: I25.10 Atherosclerotic heart disease of native coronary artery without angina pectoris (principal)

== ENCOUNTER → 2022-11-29 | Outpatient (CLI) | payer MEDICARE, OTHER ==
[2022-11-29 17:35] LABS: CREATININE FOR GFR 2.21 MG/DL (0.70-1.30)
== END ==
LOC: M WUC 14:34
PROVIDERS: ATTEND Internal Medicine Interventional Cardiology
DX: N28.9 Disorder of kidney and ureter, unspecified (principal)